=== PATIENT | female | born 1985 | race Caucasian/White ===

== ENCOUNTER 2019-08-01 09:39 | Emergency (ER) | payer BC, OTHER ==
[~2019-08-01] VITALS: Ht 165.1 cm; Wt 90.7 kg
[2019-08-01] MEDS ORDERED: LOSA50 PO (10:15)
[2019-08-01 10:45] LABS: BASOPHILS ABSOLUTE AUTO 0.07 K/mm3 (0.00-0.23); BASOPHILS PERCENT AUTO 1 % (0-2); EOSINOPHILS ABSOLUTE AUTO 0.02 K/mm3 (0.00-0.68); EOSINOPHILS PERCENT AUTO 0 % (0-6); Hemoglobin 14.4 g/dL (11.5-16.0); IMMATURE GRAN ABSOLUTE AUTO 0.03 K/mm3 (0.00-0.10); IMMATURE GRAN PERCENT AUTO 0 % (0-1); LYMPHOCYTES ABSOLUTE AUTO 1.76 K/mm3 (0.84-5.20); LYMPHOCYTES PERCENT AUTO 18 % (21-46); MONOCYTES ABSOLUTE AUTO 0.46 K/mm3 (0.16-1.47); MONOCYTES PERCENT AUTO 5 % (4-13); Mean Corpuscular HGB 28.9 pg (26.0-34.0); Mean Corpuscular HGB Conc 33.5 g/dL (31.5-36.5); Mean Corpuscular Volume 86 fL (80-100); NEUTROPHILS ABSOLUTE AUTO 7.41 K/mm3 (1.96-9.15); NEUTROPHILS PERCENT AUTO 76 % (41-73); Platelet Count 320 K/mm3 (150-400); RDW Coefficient Variation 12.7 % (11.7-14.2); RDW Standard Deviation 39.8 fL (35.1-46.3); Red Blood Cell Count 4.99 M/mm3 (3.80-5.20); White Blood Cell Count 9.75 K/mm3 (4.00-11.30)
[2019-08-01 10:59] LABS: Anion Gap 9 mmol/L (6-16); Blood Urea Nitrogen 17 mg/dL (8-24); Bun/Creatinine Ratio 22.8 (12.0-20.0); CO2, Blood 19 mmol/L (21-32); Calcium, Blood 9.1 mg/dL (8.5-10.1); Chloride, Blood 111 mmol/L (98-108); Creatinine, Blood 0.74 mg/dL (0.40-1.00); Glomerular Filtration Rate >60 (60-); Glucose, Blood 95 mg/dL (70-99); Potassium, Blood 3.7 mmol/L (3.5-5.5); Sodium, Blood 139 mmol/L (136-145); Troponin I <0.015 ng/mL (0.000-0.040)
[2019-08-01] MEDS ORDERED: HYDHCL25 PO (11:36)
== END 2019-08-01 11:50 | disposition home or self-care (01) ==
LOC: ER 09:39
PROVIDERS: Physician Assistant
DX: F41.0 Panic disorder [episodic paroxysmal anxiety] (principal); R07.9 Chest pain, unspecified; I10 Essential (primary) hypertension; F41.9 Anxiety disorder, unspecified; Z79.899 Other long term (current) drug therapy
CPT/HCPCS: 36415; 71046; 80048; 84484; 85025; 93005; 93010; 99284-25; Q0163

== ENCOUNTER → 2020-02-01 | Outpatient (CLI) | payer BC ==
[~2020-02-01] MED LIST: HYDHCL25 PO; LOSA50 PO; PANT20 PO
[2020-02-03 05:10] LABS: CHLAMYDIA TRACHOMATIS, NAA Negative (Negative); NEISSERIA GONORRHOEAE, NAA Negative (Negative)
== END | disposition home or self-care (01) ==
LOC: LAB 11:30 → LAB SHORT 11:30
PROVIDERS: Obstetrics & Gynecology
DX: Z11.3 Encounter for screening for infections with a predominantly sexual mode of transmission (principal); N89.8 Other specified noninflammatory disorders of vagina
CPT/HCPCS: 87070; 87205; 87491; 87591

== ENCOUNTER 2020-02-16 06:24 | Day surgery (SDC) | payer BC ==
[~2020-02-16] VITALS: Ht 165.1 cm; Wt 100.2 kg
[~2020-02-16 06:24] MED LIST changes: -PANT20 PO
[2020-02-16] MEDS ORDERED: PANT20 PO (07:14)
== END 2020-02-16 08:23 | disposition home or self-care (01) ==
LOC: ORSCSDS 06:24
PROVIDERS: Orthopaedic Surgery
PROC: 01N50ZZ Release Median Nerve, Open Approach (ICD-10-PCS; principal; 2020-02-16 07:30)
DX: G56.01 Carpal tunnel syndrome, right upper limb (principal); I10 Essential (primary) hypertension; E66.9 Obesity, unspecified; Z68.36 Body mass index [BMI] 36.0-36.9, adult; Z79.899 Other long term (current) drug therapy
CPT/HCPCS: J2250; J2704; J3010

== ENCOUNTER 2020-04-04 19:33 | Emergency (ER) | payer BC ==
[~2020-04-04] VITALS: Ht 165.1 cm; Wt 94.8 kg
[~2020-04-04 19:33] MED LIST changes: +PANT20 PO
[2020-04-04 20:28] LABS: BASOPHILS ABSOLUTE AUTO 0.06 K/mm3 (0.00-0.23); BASOPHILS PERCENT AUTO 1 % (0-2); EOSINOPHILS ABSOLUTE AUTO 0.03 K/mm3 (0.00-0.68); EOSINOPHILS PERCENT AUTO 0 % (0-6); Hematocrit 43.8 % (33.0-51.0); Hemoglobin 14.4 g/dL (11.5-16.0); IMMATURE GRAN ABSOLUTE AUTO 0.03 K/mm3 (0.00-0.10); IMMATURE GRAN PERCENT AUTO 0 % (0-1); LYMPHOCYTES ABSOLUTE AUTO 2.21 K/mm3 (0.84-5.20); LYMPHOCYTES PERCENT AUTO 22 % (21-46); MONOCYTES ABSOLUTE AUTO 0.62 K/mm3 (0.16-1.47); MONOCYTES PERCENT AUTO 6 % (4-13); Mean Corpuscular HGB 26.9 pg (26.0-34.0); Mean Corpuscular HGB Conc 32.9 g/dL (31.5-36.5); Mean Corpuscular Volume 82 fL (80-100); Mean Platelet Volume 10.2 fL (9.1-12.4); NEUTROPHILS ABSOLUTE AUTO 7.33 K/mm3 (1.96-9.15); NEUTROPHILS PERCENT AUTO 71 % (41-73); Platelet Count 399 K/mm3 (150-400); RDW Coefficient Variation 12.9 % (11.7-14.2); RDW Standard Deviation 38.4 fL (35.1-46.3); Red Blood Cell Count 5.35 M/mm3 (3.80-5.20); White Blood Cell Count 10.28 K/mm3 (4.00-11.30)
[2020-04-04 20:59] LABS: Alanine Aminotransfer (ALT/SGP 31 U/L (12-78); Albumin, Blood 3.8 g/dL (3.4-5.0); Albumin/Globulin Ratio 0.9 (0.8-1.8); Alk Phos 103 U/L (50-136); Anion Gap 12 mmol/L (6-16); Aspartate Aminotrans (AST/SGOT 16 U/L (12-37); Bilirubin, Total 0.4 mg/dL (0.1-1.0); Blood Urea Nitrogen 8 mg/dL (8-24); Bun/Creatinine Ratio 10.1 (12.0-20.0); CO2, Blood 19 mmol/L (21-32); Calcium, Blood 9.4 mg/dL (8.5-10.1); Chloride, Blood 108 mmol/L (98-108); Globulin, Blood 4.2 g/dL (2.2-4.0); Glomerular Filtration Rate >60 (60-); Glucose, Blood 124 mg/dL (70-99); Potassium, Blood 3.5 mmol/L (3.5-5.5); Sodium, Blood 139 mmol/L (136-145)
[2020-04-04] MEDS ORDERED: CEFD300 PO (21:26)
== END 2020-04-04 21:52 | disposition home or self-care (01) ==
LOC: ER 19:33
PROVIDERS: Physician Assistant
DX: K21.9 Gastro-esophageal reflux disease without esophagitis (principal); H66.91 Otitis media, unspecified, right ear; I10 Essential (primary) hypertension; Z88.1 Allergy status to other antibiotic agents; Z79.899 Other long term (current) drug therapy
CPT/HCPCS: 36415; 80053; 85025; 93005; 93010; 99283-25

== ENCOUNTER → 2021-02-05 | Outpatient (CLI) | payer BC ==
[~2021-02-05] MED LIST changes: +CEFD300 PO
[2021-02-06 15:11] LABS: HPV 16 Negative (Negative); HPV 18 Negative (Negative); HPV OTHER HR TYPES Negative (Negative)
== END | disposition home or self-care (01) ==
LOC: LAB SHORT 11:41 → LAB 11:41
PROVIDERS: Obstetrics & Gynecology
DX: Z12.4 Encounter for screening for malignant neoplasm of cervix (principal)
CPT/HCPCS: 87624; G0123

== ENCOUNTER → 2021-04-01 | Outpatient (CLI) | payer BC ==
[2021-04-01 14:19] LABS: Candida species (DNA Probe) Negative (NEGATIVE); G. vaginalis (DNA Probe) Positive (NEGATIVE); T. vaginalis (DNA Probe) Negative (NEGATIVE)
== END | disposition home or self-care (01) ==
LOC: LAB SHORT 12:24
PROVIDERS: Obstetrics & Gynecology
DX: N89.8 Other specified noninflammatory disorders of vagina (principal)
CPT/HCPCS: 87480; 87510; 87660

== ENCOUNTER 2023-01-14 07:07 | Inpatient (IN) | payer BC ==
[2023-01-14] VITALS (31 sets, daily range): BP systolic 111–167; BP diastolic 58–87
[~2023-01-14] VITALS: Ht 165.1 cm; Wt 92.2 kg
[2023-01-14 08:13] LABS: BASOPHILS ABSOLUTE AUTO 0.03 K/mm3 (0.00-0.23); BASOPHILS PERCENT AUTO 0 % (0-2); EOSINOPHILS ABSOLUTE AUTO 0.08 K/mm3 (0.00-0.68); EOSINOPHILS PERCENT AUTO 1 % (0-6); Hematocrit 34.7 % (33.0-51.0); Hemoglobin 11.8 g/dL (11.5-16.0); IMMATURE GRAN ABSOLUTE AUTO 0.02 K/mm3 (0.00-0.10); IMMATURE GRAN PERCENT AUTO 0 % (0-1); LYMPHOCYTES ABSOLUTE AUTO 1.77 K/mm3 (0.84-5.20); LYMPHOCYTES PERCENT AUTO 23 % (21-46); MONOCYTES ABSOLUTE AUTO 0.47 K/mm3 (0.16-1.47); MONOCYTES PERCENT AUTO 6 % (4-13); Mean Corpuscular HGB 28.2 pg (26.0-34.0); Mean Corpuscular Volume 83 fL (80-100); Mean Platelet Volume 11.6 fL (9.1-12.4); NEUTROPHILS ABSOLUTE AUTO 5.22 K/mm3 (1.96-9.15); NEUTROPHILS PERCENT AUTO 69 % (41-73); Platelet Count 260 K/mm3 (150-400); RDW Coefficient Variation 14.1 % (11.7-14.2); RDW Standard Deviation 42.7 fL (35.1-46.3); Red Blood Cell Count 4.18 M/mm3 (3.80-5.20); White Blood Cell Count 7.59 K/mm3 (4.00-11.30)
[2023-01-15] VITALS (21 sets, daily range): BP systolic 106–179; BP diastolic 53–81
--- NOTE | 2023-01-15 07:20 | NUR ---
01/15/23 0720 Zehra Vee VIABLE MALE BORN AT 0712 WITH APGARS 9/9. WEIGHT 7-2 (3220) CORD GASES ON ICE AND GIVEN TO OLI BAKER AND CORD BLOOD GIVEN TO VINITA FRANCES.
[2023-01-15 07:35] LABS: PCO2 Cord - Arterial 28.8 mmHg (40-50); PO2 Cord - Arterial 21.8 mmHg (16-20)
[2023-01-15 07:37] LABS: PCO2 Cord - Venous 29.9 mmHg (40-50); PO2 Cord - Venous 21.9 mmHg (28-32)
--- NOTE | 2023-01-16 04:03 | NUR ---
ASSUMED CARE AT 0320
[2023-01-16 04:38] VITALS: BP 129/75
[2023-01-16 06:48] LABS: BASOPHILS ABSOLUTE AUTO 0.02 K/mm3 (0.00-0.23); BASOPHILS PERCENT AUTO 0 % (0-2); EOSINOPHILS ABSOLUTE AUTO 0.04 K/mm3 (0.00-0.68); EOSINOPHILS PERCENT AUTO 0 % (0-6); Hematocrit 28.1 % (33.0-51.0); Hemoglobin 9.5 g/dL (11.5-16.0); IMMATURE GRAN ABSOLUTE AUTO 0.02 K/mm3 (0.00-0.10); IMMATURE GRAN PERCENT AUTO 0 % (0-1); LYMPHOCYTES ABSOLUTE AUTO 1.72 K/mm3 (0.84-5.20); LYMPHOCYTES PERCENT AUTO 17 % (21-46); MONOCYTES ABSOLUTE AUTO 0.52 K/mm3 (0.16-1.47); MONOCYTES PERCENT AUTO 5 % (4-13); Mean Corpuscular HGB 28.4 pg (26.0-34.0); Mean Corpuscular HGB Conc 33.8 g/dL (31.5-36.5); Mean Corpuscular Volume 84 fL (80-100); Mean Platelet Volume 11.4 fL (9.1-12.4); NEUTROPHILS ABSOLUTE AUTO 7.59 K/mm3 (1.96-9.15); NEUTROPHILS PERCENT AUTO 77 % (41-73); Platelet Count 185 K/mm3 (150-400); RDW Coefficient Variation 14.5 % (11.7-14.2); RDW Standard Deviation 44.3 fL (35.1-46.3); Red Blood Cell Count 3.35 M/mm3 (3.80-5.20); White Blood Cell Count 9.91 K/mm3 (4.00-11.30)
[2023-01-16 07:20] VITALS: BP 106/67
[2023-01-16 10:59] VITALS: BP 124/75
[2023-01-16 17:46] VITALS: BP 126/69
[2023-01-16 19:41] VITALS: BP 128/76
[2023-01-17 00:59] VITALS: BP 130/79
[2023-01-17 05:10] VITALS: BP 125/78
--- NOTE | 2023-01-17 05:20 | NUR ---
Pt holding baby sitting up in bed, lights on.
[2023-01-17] MEDS ORDERED: Percocet 5-3251 EACH PO (07:23)
[2023-01-17] MEDS ORDERED: IBU800 M1 PO (07:23)
[2023-01-17 09:21] VITALS: BP 131/77
[2023-01-17 12:48] VITALS: BP 136/78
== END 2023-01-17 15:25 | disposition home or self-care (01) | DRG 788 ==
LOC: OBS 07:07 → BC 07:10 → OBS 07:19 → BC 07:20
PROVIDERS: ADMIT Obstetrics & Gynecology
PROC: 4A033R1 Measurement of Arterial Saturation, Peripheral, Percutaneous Approach (ICD-10-PCS; 2023-01-15)
PROC: 10D00Z1 Extraction of Products of Conception, Low, Open Approach (ICD-10-PCS; principal; 2023-01-15 07:00)
DX: O48.0 Post-term pregnancy (principal); O64.0XX0 Obstructed labor due to incomplete rotation of fetal head, not applicable or unspecified; Z37.0 Single live birth; Z3A.41 41 weeks gestation of pregnancy; O77.9 Labor and delivery complicated by fetal stress, unspecified; O69.1XX0 Labor and delivery complicated by cord around neck, with compression, not applicable or unspecified; Z88.1 Allergy status to other antibiotic agents; Z98.890 Other specified postprocedural states; O99.214 Obesity complicating childbirth
CPT/HCPCS: 36415; 51702; 82803; 85025; 86850; 86900; 86901; 86923; A9270; J0171; J0690; J1885; J2001; J2210; J2371; J2405; J2590; J3010; J7120